=== PATIENT | female | born 1975 | race Caucasian/White ===

== ENCOUNTER 2017-06-06 12:28 | Emergency (ER) | payer MEDICAID ==
[2017-06-06] MEDS: KETOROLAC 15 MG INJ IM (14:18)
[2017-06-06 14:24] LABS: URINE PH (Dip) POC 5.5 (5.0-8.5)
[2017-06-06 14:24] LABS: URINE BLOOD (Dip) POC 1+ (NEGATIVE); URINE GLUCOSE (Dip) POC Negative (NEGATIVE); URINE KETONES (Dip) POC Negative (NEGATIVE); URINE LEUKOCYTE EST (Dip) POC 1+ (NEGATIVE); URINE NITRITE (Dip) POC Negative (NEGATIVE); URINE TOTAL PROTEIN POC Negative (NEGATIVE)
== END 2017-06-06 15:07 | disposition home or self-care (01) ==
LOC: FTE 12:28
DX: N39.0 Urinary tract infection, site not specified (principal)
CPT/HCPCS: 81003; 81025; 96372; 99284-25

== ENCOUNTER 2017-07-04 12:27 | Emergency (ER) | payer MEDICAID ==
[2017-07-04] MEDS: LIDOCAINE 1% (MDV) 10 ML INJ INJ (14:38)
== END 2017-07-04 15:48 | disposition home or self-care (01) ==
LOC: FTE 12:27
DX: N75.1 Abscess of Bartholin's gland (principal)
CPT/HCPCS: 56420; 99282-25

== ENCOUNTER 2018-06-19 10:00 | Emergency (ER) | payer MEDICAID ==
[2018-06-19] MEDS: KETOROLAC 30 MG INJ IM (10:52)
== END 2018-06-19 11:16 | disposition home or self-care (01) ==
LOC: FTE 11:16
DX: M54.42 Lumbago with sciatica, left side (principal)
CPT/HCPCS: 81025; 96372; 99284-25